=== PATIENT | female | born 1995 ===

== ENCOUNTER 2019-10-04 05:14 | Inpatient (IN) | payer OTHER ==
[2019-10-04] MEDS ORDERED: Lactated Ringer's 1,000 ML IV SCH (05:18)
[2019-10-04] MEDS ORDERED: Promethazine HCl 25 MG/ML VIAL IM PRN ×3 (05:18→10:25)
[2019-10-04] MEDS ORDERED: hydrALAZINE 20 MG/ML VIAL SLOW IVP PRN ×2 (05:18→10:25)
[2019-10-04] MEDS ORDERED: Ondansetron PF 4 MG/2 ML Vial IVP PRN ×3 (05:18→10:25)
[2019-10-04] MEDS ORDERED: Bicitra 30 ML UDCUP PO SCH (05:30)
[2019-10-04] MEDS ORDERED: CEFAZOLIN 2 GM in Premix Bag 1 BAG IVPB SCH (05:30)
[2019-10-04 05:39] VITALS: BMI 36.3
[2019-10-04 06:08] LABS: Hemoglobin 12.9 g/dL (12.0-16.0); Mean Corpuscular HGB CONC 35.1 g/dL (32.0-36.0); Mean Corpuscular Hemoglobin 33.7 pg (27.0-31.0); Mean Corpuscular Volume 96.2 fL (78.0-98.0); Mean Platelet Volume 8.9 fL (7.4-10.4); Platelet Count 217 thou/uL (130-400); RBC Distribution Width 12.7 % (11.5-14.5); Red Blood Cell (RBC) Count 3.84 mill/uL (4.20-5.40); White Blood Cell (WBC) Count 14.6 thou/uL (4.8-10.8)
[2019-10-04 06:48] LABS: Syphilis Antibody Nonreactive (Nonreactive); Syphilis Antibody Index 0.02 S/CO (<1.00 Non-Reactive)
[2019-10-04 06:49] LABS: HBSAg Index 0.23 S/CO (0-0.99); Hep B Surf Ag Non-Reactive S/CO (NonReactive)
[2019-10-04] MEDS ORDERED: Fentanyl 100 MCG/2 ML VIAL ONE (07:32)
[2019-10-04] MEDS ORDERED: PHENYLEPHRINE-NS 100 MCG/ML 10 ML SYRINGE ONE (07:33)
[2019-10-04] MEDS ORDERED: Dexamethasone 4 mg/ml Vial ONE (07:33)
[2019-10-04] MEDS ORDERED: Ketorolac Tromethamine 30 MG/ML VIAL ONE ×2 (07:33→10:15)
[2019-10-04] MEDS ORDERED: Oxytocin 10 UNITS/ML VIAL ONE ×3 (07:33→08:25)
[2019-10-04] MEDS ORDERED: EPHEDRINE 25 MG/5 ML SYRINGE ONE ×2 (07:33→08:00)
[2019-10-04] MEDS ORDERED: Ondansetron PF 4 MG/2 ML Vial ONE (07:53)
[2019-10-04] MEDS ORDERED: Midazolam HCl 2 mg/2 ml Vial ONE (08:20)
[2019-10-04] MEDS ORDERED: diphenhydrAMINE 50 MG/ML VIAL IVP PRN (08:30)
[2019-10-04] MEDS ORDERED: Ondansetron HCl/PF 4 MG/2 ML Vial IVP PRN (08:30)
[2019-10-04] MEDS ORDERED: Naloxone HCl 0.4 mg/ml Vial IVP PRN ×2 (08:30)
[2019-10-04] MEDS ORDERED: Naloxone HCl 0.4 mg/ml Vial IV PRN (08:30)
[2019-10-04] MEDS ORDERED: Meperidine HCl/PF 25 MG/ML VIAL SLOW IVP PRN ×2 (08:30→11:15)
[2019-10-04] MEDS ORDERED: HYDROmorphone 2 MG/ML VIAL SLOW IVP PRN (08:30)
[2019-10-04] MEDS ORDERED: Communication Order-Pharmacy FS SCH (08:30)
[2019-10-04] MEDS ORDERED: Ketorolac Tromethamine 30 MG/ML VIAL IVP PRN (08:30)
[2019-10-04] MEDS ORDERED: Promethazine HCl 25 MG SUPP PR PRN (08:30)
[2019-10-04] MEDS ORDERED: NS / Oxytocin 40 units/1000ml 1,000 ML IV SCH (10:25)
[2019-10-04] MEDS ORDERED: diphenhydrAMINE 25 MG CAP PO PRN (10:25)
[2019-10-04] MEDS ORDERED: Lanolin Ointment 7 GM TUBE TOP PRN (10:25)
[2019-10-04] MEDS ORDERED: Bisacodyl 10 MG SUPP PR PRN (10:25)
[2019-10-04] MEDS: Meperidine HCl/PF 25 MG/ML VIAL SLOW IVP PRN ×5 (11:22→23:15)
[2019-10-04] MEDS ORDERED: Ketorolac Tromethamine 30 MG/ML VIAL IVP SCH (12:00)
[2019-10-04] MEDS: Ketorolac Tromethamine 30 MG/ML VIAL IVP SCH ×3 (12:48→22:59)
[2019-10-04] MEDS: Ferrous Sulfate 325 MG TAB PO SCH (17:34)
--- NOTE | 2019-10-04 20:02 | OP ---
DATE OF PROCEDURE: 10/04/2019 PRIMARY SURGEON: Dr. Yared De Leon RESIDENT SURGEON: Dr. Radha Mohan. PROCEDURE PERFORMED: Repeat low transverse section. PREOPERATIVE DIAGNOSES: 1. Term intrauterine . 2. Previous . POSTOPERATIVE DIAGNOSES: 1. Term intrauterine , delivered. 2. Previous . ANESTHESIA: Spinal. INDICATIONS: This is a 24-year-old, G3, P1-0-1-1 at 39 and 1 weeks' gestation, who presented for repeat scheduled . PROCEDURE IN DETAIL: After risks, benefits, and alternatives were explained to the patient, she gave informed consent. Preoperative antibiotics included cefazolin 2 g IV. The patient was taken to the operating room, and spinal anesthesia was initiated. She was placed in a supine position with left tilt, prepped and draped in the usual sterile fashion. A Pfannenstiel incision was made along the previous incision with a scalpel and carried down to the level of the fascia, which was sharply nicked. The fascial cut was extended bilaterally with Neves scissors. The inferior and superior edges of the cut fascial edges were elevated with Rex clamps and underlying rectus muscles were sharply and bluntly dissected free. There were not noted to be extensive adhesions during this process. The recti were divided utilizing hemostats and Neves scissors. Once entered, they were retracted manually. Peritoneum was entered bluntly and also retracted manually. A bladder blade was placed. Low transverse score was made with the scalpel, and uterus was entered in the midline with the scalpel. Clear fluid was seen. Hysterotomy was extended manually. The was noted to be vertex and was very easily delivered by fundal pressure. Mouth and nares were bulb suctioned. Cord was clamped and cut, and grossly normal female infant was handed to the waiting nurse. Cord blood obtained. Placenta was manually extracted, found to be intact with three-vessel cord and discarded. The uterus was externalized, and the endometrium was curetted with a dry lap. Bladder blade was replaced, and the uterus was closed with a running locking #1 Monocryl suture. The abdomen was irrigated with saline and suctioned free of clots with anterior and posterior to the uterus. Seprafilm was placed. The uterus was then internalized, and hysterotomy was again noted to be hemostatic. The peritoneum was closed with a running nonlocking 3-0 Vicryl suture. The fascia was then closed with a running nonlocking 0 PDS suture. The subcutaneous tissue was irrigated, and bleeders were cauterized. The subcutaneous tissue was then brought together using 3-0 Vicryl with three interrupted sutures. The skin was approximated with lois, and a pressure dressing was placed. All counts were correct. The patient tolerated the procedure well, was taken to recovery room in stable condition. QUANTITATIVE BLOOD LOSS: 225 mL. COMPLICATIONS: None. SPECIMENS: Cord blood sent to lab for blood type. Grossly normal female infant with Apgars of 8 and 9 at one and five minutes respectively. Grossly normal placenta with 3-vessel cord discarded. weight was 2.434 kg. DRAINS: Flores to gravity, draining clear urine. Job ID: [id number] [id number]
[2019-10-04] MEDS: Docusate Calcium (SURFAK) 240 MG CAP PO SCH (23:08)
[2019-10-05] MEDS: Simethicone Chewable 80 MG TAB PO PRN ×3 (03:11→21:39)
[2019-10-05] MEDS: Meperidine HCl/PF 25 MG/ML VIAL SLOW IVP PRN ×2 (04:02→07:55)
[2019-10-05] MEDS: Ketorolac Tromethamine 30 MG/ML VIAL IVP SCH (04:46)
[2019-10-05 05:03] LABS: Hemoglobin 9.8 g/dL (12.0-16.0); Mean Corpuscular HGB CONC 35.4 g/dL (32.0-36.0); Mean Corpuscular Hemoglobin 34.6 pg (27.0-31.0); Mean Corpuscular Volume 97.9 fL (78.0-98.0); Mean Platelet Volume 8.2 fL (7.4-10.4); Platelet Count 182 thou/uL (130-400); RBC Distribution Width 12.9 % (11.5-14.5); Red Blood Cell (RBC) Count 2.84 mill/uL (4.20-5.40); White Blood Cell (WBC) Count 10.3 thou/uL (4.8-10.8)
[2019-10-05] MEDS: Ferrous Sulfate 325 MG TAB PO SCH ×2 (07:58→17:31)
[2019-10-05] MEDS: Docusate Calcium (SURFAK) 240 MG CAP PO SCH ×2 (07:58→21:39)
[2019-10-05] MEDS: Prenatal Vitamin 1 TAB PO SCH (07:58)
[2019-10-05] MEDS ORDERED: Adacel (T-DAP) 0.5 ML SYRINGE IM ONE (09:00)
[2019-10-05] MEDS ORDERED: HYDROcodone/Acetaminophen 5/325 mg Tablet PO PRN (09:15)
[2019-10-05] MEDS: HYDROcodone/Acetaminophen 5/325 mg Tablet PO PRN ×3 (11:59→21:39)
[2019-10-05] MEDS: Ibuprofen 800 MG TAB PO SCH ×2 (13:41→21:39)
[2019-10-06] MEDS: HYDROcodone/Acetaminophen 5/325 mg Tablet PO PRN ×4 (02:47→18:00)
[2019-10-06] MEDS: Simethicone Chewable 80 MG TAB PO PRN (02:48)
[2019-10-06] MEDS: Ibuprofen 800 MG TAB PO SCH ×2 (05:35→13:49)
[2019-10-06] MEDS: Prenatal Vitamin 1 TAB PO SCH (08:12)
[2019-10-06] MEDS: Docusate Calcium (SURFAK) 240 MG CAP PO SCH (08:12)
[2019-10-06] MEDS: Ferrous Sulfate 325 MG TAB PO SCH ×2 (08:12→17:08)
[2019-10-06 17:07] VITALS: BP 103/64; TEMP 97.8
== END 2019-10-06 19:48 | disposition home or self-care (01) | DRG 788 ==
LOC: L&D 05:14 → EEVIPCON 05:14 → 3SW 11:02
PROVIDERS: ADMIT Family Medicine; ATTEND Family Medicine
PROC: 10D00Z1 Extraction of Products of Conception, Low, Open Approach (ICD-10-PCS; principal; 2019-10-04)
DX: O34.211 Maternal care for low transverse scar from previous cesarean delivery (principal); Z3A.39 39 weeks gestation of pregnancy; Z37.0 Single live birth
CPT/HCPCS: 36415; 51702; 85027; 86780; 86850; 86900; 86901; 87340; J0690; J1100; J1885; J2175; J2250; J2405; J2590; J3010; Q0163